=== PATIENT | male | born 1955 | race Caucasian/White ===

== ENCOUNTER 2021-07-24 18:44 | Emergency (ER) | payer MEDICARE, BC, SELFPAY ==
[2021-07-24 18:51] VITALS: BP 157/84; PULSE 84; RESP 14; TEMP 36.7; O2SAT 96; BMI 30.5
[2021-07-24 22:26] VITALS: BP 149/80; PULSE 78; RESP 16; O2SAT 93
--- NOTE | 2021-07-24 23:45 | ED_ITS ---
HPI - Fall General Chief Complaint: Fall Stated Complaint: slipped on ice, head injury Time Seen by Provider: 07/24/21 23:45 Source: patient Mode of arrival: Ambulatory History of Present Illness HPI Narrative: Patient is a 66-year-old male no past medical history presenting after ground level fall. He says he was going down a hill is tripped and fell he has an abrasion on his forehead. He is not on any antiplatelet or anticoagulation medication. He does not think he lost consciousness. He does have quite a bit of a headache. he may be nauseous or hungry but can not decide. Denies any vomiting. Has no neck pain no other injury during the fall. Related Data Allergies Allergy/AdvReac Type Severity Reaction Status Date / Time No Known Drug Allergies Allergy Verified 07/24/21 18:51 Review of Systems Review of Systems Narrative: GENERAL: Denies chills, fatigue, malaise, fever, sweats, travel HEENT: Denies sinus pain, ear pain, sore throat, difficulty swallowing, neck pain RESPIRATORY: Denies dyspnea, cough, wheezing, hemoptysis, sputum. CARDIOVASCULAR: Denies chest pain, palpitations, orthopnea, edema GASTROINTESTINAL: Denies nausea, vomiting, abdominal pain, diarrhea, constipation, melena. : Denies dysuria, frequency, incontinence, hematuria, urinary retention, flank pain. MUSCULOSKELETAL: Denies weakness, joint pain, or bony pain SKIN: No rash, no erythema, no pruritus NEUROLOGIC: + head injury no LOC, see HPI PSYCHIATRIC: No concerning psychosocial issues. 12 point review of systems is negative except for those stated above and HPI Patient History Social History Smoking Status: Unknown if ever smoked Smoking Status: Unknown if ever smoked alcohol intake frequency: a few times a week Substance Use Type: does not use Exam Initial Vital Signs Initial Vital Signs: Vital Signs Temperature 98.1 F 07/24/21 18:51 Pulse Rate 84 07/24/21 18:51 Respiratory Rate 14 07/24/21 18:51 Blood Pressure 157/84 H 07/24/21 18:51 Pulse Oximetry 96 07/24/21 18:51 GENERAL: Well-appearing, well-nourished and in no acute distress. HEENT: Head abrasion forehead with laceration no crepitation laceration is 2.5 cm with mom moderate gaping NECK: Full range of motion flexion extension and rotation no is pain full vertebrae CARDIOVASCULAR: Regular rate and rhythm without murmurs, rubs or gallops. RESPIRATORY: Breath sounds equal bilaterally, no wheezes rales or rhonchi. ABDOMEN: Soft, nontender. Normoactive bowel sounds all 4 quadrants. No guarding or rebound. EXTREMITIES: Normal range of motion, no clubbing or edema. Neurovascularly intact NEUROLOGICAL: Alert and oriented x4.Normal gait and speech. Cranial nerves II through XII grossly intact. Cardiopulmonary Technician And Eeg Tech strength equal bilaterally SKIN: Warm, dry, no laceration, no petechiae, no rashes or lesions. Procedures Laceration Repair Laceration 1: Site: face (forehead hair line) Description: irregular and clean Depth: simple, single layer Local Anesthetic: lidocaine 1% Amount of anesthesia used (mL): 2 Pre-repair: wound explored, irrigated extensively and deep structures intact Skin layer closed with: nylon Size (cm): 4-0 Number of sutures: 2 Course Orders Ordered: ED Orders 07/25/21 00:00 CT cervical spine wo con Stat CT head/brain wo con Stat Discontinued Medications Acetaminophen (Acetaminophen 325 Mg Tablet) 975 mg PO NOW ONE Stop: 07/25/21 00:46 Last Admin: 07/25/21 00:01 Dose: 975 mg Documented by: JAMES Diphtheria/Tetanus/Acell Pertussis (Tet,Diph,Pertuss(Acell),Vac/Pf 0.5 Ml Syringe) 0.5 ml IM .ONCE ONE Stop: 07/25/21 00:01 Last Admin: 07/25/21 00:08 Dose: 0.5 ml Documented by: JAMES Lidocaine HCl (Lidocaine 1% (Pf)) 4 ml SUBCUT NOW ONE Stop: 07/25/21 00:01 Last Admin: 07/25/21 00:07 Dose: 4 ml Documented by: JAMES Vital Signs Vital signs: Vital Signs - 8 hr 07/24/21 22:26 07/25/21 00:13 Pulse Rate 78 79 Respiratory Rate 16 Blood Pressure 149/80 H 131/75 Pulse Oximetry 93 92 MDM - Fall Imaging Data CT - cervical spine: Radiologist's Impression: PROCEDURE:? CT CERVICAL SPINE WO CON ? INDICATIONS:? fall, hit head ? TECHNIQUE:? Noncontrast 3 mm thick sections acquired from the skull base to the T4 level.? Sagittal and coronal reformats were then constructed.? For radiation dose reduction, the following was used:? automated exposure control, adjustment of mA and/or kV according to patient size.? ? COMPARISON:? None. ? FINDINGS:? Image quality:? Excellent.? ? Bones:? No fractures or subluxation.? There is straightening of the cervical lordosis.? Multilevel degenerative disc disease present including moderate to severe degeneration in the lower cervical spine C5-C6 and C6-C7 with endplate sclerosis and osteophytosis.? Mild uncovertebral joint arthropathy also demonstrated within the lower cervical spine.? There is moderate multilevel facet arthropathy within the mid cervical spine.? Visualized superior ribs are intact.? There are multiple arachnoid granulations demonstrated within the calvarium.? ? Soft tissues:? Prevertebral soft tissues are normal in thickness.? There is a small indistinct left thyroid nodule measuring to 0.9 cm.? No paravertebral hematomas.? No apical pneumothoraces.? ? ? IMPRESSION:? ? 1. No fracture or subluxation. ? 2. Multilevel degenerative changes of the cervical spine as described. ? ? ? Dictated by: Quinten Mcmahon M.D. on 07/25/2021 at 0:17 ? ? Approved by: Quinten Mcmahon M.D. on 07/25/2021 at 0:21 ? CT scan - head: Radiologist's Impression: PROCEDURE:? CT HEAD/BRAIN WO CON ? INDICATIONS:? fall, hit head ? TECHNIQUE:? Noncontrast 4.5 mm thick angled axial sections acquired from the foramen magnum to the vertex, with coronal and sagittal reformats.? For radiation dose reduction, the following was used:? automated exposure control, adjustment of mA and/or kV according to patient size.? ? COMPARISON:? None. ? FINDINGS:? Image quality:? Excellent.? ? CSF spaces:? Basal cisterns are patent.? No extra-axial fluid collections.? Ventricles are normal in size and shape.? ? Brain:? No intracranial hemorrhage, mass, or mass effect.? Juarez-white matter interface appears preserved.? ? Skull and face:? Calvarium and visualized facial bones are intact, without suspicious lesions.? ? Sinuses:? Visualized sinuses and mastoids are clear.? ? IMPRESSION:? ? 1. No acute intracranial abnormality. ? ? Dictated by: Quinten Mcmahon M.D. on 07/25/2021 at 0:15 ? ? MDM Narrative Medical decision making narrative: The patient does have a pretty good abrasion with laceration and mild headache. His CT does not show any injury. Parts of the laceration came together nicely there is not good skin approximation and all areas. Discharge Plan Departure Patient Disposition: Home Clinical Impression: Laceration, Closed head injury Instructions: Concussion, DI for Laceration Repair Activity Restrictions/Additional Instructions: *You have been diagnosed with closed head injury, laceration *What to do: Keep area clean and dry with soap and water. May shower tomorrow morning. May apply Neosporin to area 1-2 times daily. Have sutures removed in about 5-7 days at the walk-in clinic or you may return to the emergency department *Continue to take medications as directed Tylenol 1000 mg every 6 hours if needed for [id number] pain Ibuprofen 600 mg every 6 hours if needed for [id number] pain *Follow up with your primary care provider in 2-3 days or call [phone] *Return to ER if you should have increasing confusion persistent vomiting worse petr headache weakness, redness, swelling or any new, worsening or concerning symptoms
--- NOTE | 2021-07-25 | DI.CT.S_ITS ---
PROCEDURE: CT HEAD/BRAIN WO CON INDICATIONS: fall, hit head TECHNIQUE: Noncontrast 4.5 mm thick angled axial sections acquired from the foramen magnum to the vertex, with coronal and sagittal reformats. For radiation dose reduction, the following was used: automated exposure control, adjustment of mA and/or kV according to patient size. COMPARISON: None. FINDINGS: Image quality: Excellent. CSF spaces: Basal cisterns are patent. No extra-axial fluid collections. Ventricles are normal in size and shape. Brain: No intracranial hemorrhage, mass, or mass effect. Juarez-white matter interface appears preserved. Skull and face: Calvarium and visualized facial bones are intact, without suspicious lesions. Sinuses: Visualized sinuses and mastoids are clear. IMPRESSION: 1. No acute intracranial abnormality. Dictated by: Quinten Mcmahon M.D. on 07/25/2021 at 0:15 Approved by: Quinten Mcmahon M.D. on 07/25/2021 at 0:17
--- NOTE | 2021-07-25 | DI.CT.S_ITS ---
PROCEDURE: CT CERVICAL SPINE WO CON INDICATIONS: fall, hit head TECHNIQUE: Noncontrast 3 mm thick sections acquired from the skull base to the T4 level. Sagittal and coronal reformats were then constructed. For radiation dose reduction, the following was used: automated exposure control, adjustment of mA and/or kV according to patient size. COMPARISON: None. FINDINGS: Image quality: Excellent. Bones: No fractures or subluxation. There is straightening of the cervical lordosis. Multilevel degenerative disc disease present including moderate to severe degeneration in the lower cervical spine C5-C6 and C6-C7 with endplate sclerosis and osteophytosis. Mild uncovertebral joint arthropathy also demonstrated within the lower cervical spine. There is moderate multilevel facet arthropathy within the mid cervical spine. Visualized superior ribs are intact. There are multiple arachnoid granulations demonstrated within the calvarium. Soft tissues: Prevertebral soft tissues are normal in thickness. There is a small indistinct left thyroid nodule measuring to 0.9 cm. No paravertebral hematomas. No apical pneumothoraces. IMPRESSION: 1. No fracture or subluxation. 2. Multilevel degenerative changes of the cervical spine as described. Dictated by: Quinten Mcmahon M.D. on 07/25/2021 at 0:17 Approved by: Quinten Mcmahon M.D. on 07/25/2021 at 0:21
[2021-07-25] MEDS: ACETAMINOPHEN 325 MG TABLET 975 MG PO (00:01)
[2021-07-25] MEDS: LIDOCAINE 1% (PF) 4 ML SUBCUT (00:07)
[2021-07-25] MEDS: TET,DIPH,PERTUSS(ACELL),VAC/PF 0.5 ML SYRINGE IM (00:08)
[2021-07-25 00:13] VITALS: BP 131/75; PULSE 79; O2SAT 92
--- NOTE | 2021-07-25 01:09 | PC.NURSE ---
a large bandaid was applied to forehead suture site.
== END 2021-07-25 01:11 | disposition home or self-care (01) ==
PROVIDERS: Emergency Provider Emergency Medicine
DX: S01.81XA Laceration without foreign body of other part of head, initial encounter (principal); S09.90XA Unspecified injury of head, initial encounter; Z23 Encounter for immunization; W01.0XXA Fall on same level from slipping, tripping and stumbling without subsequent striking against object, initial encounter; Y93.89 Activity, other specified
CPT/HCPCS: 12011; 70450; 72125; 90471; 99283; 99284; 90715